=== PATIENT | male | born 1985 | race African-American/Black ===

== ENCOUNTER 2021-10-26 11:54 | Inpatient (IN) | payer MEDICAID ==
[~2021-10-26] VITALS: Ht 190.5 cm; Wt 111.1 kg
[2021-10-26] MEDS ORDERED: ONDANSETRON HCL 4MG/2ML INJ IV ONE (12:30)
[2021-10-26 14:07] LABS: HEMATOCRIT. 24.9 % (42.0-52.0); HEMOGLOBIN. 8.4 g/dL (14.0-18.0); MEAN CORPUSCULAR HEMOGLOBIN 31.3 pg (28.0-32.0); MEAN CORPUSCULAR VOLUME 92.4 fL (80.0-94.0); MEAN PLATELET VOLUME 9.3 fl (7.4-10.4); PLATELET 171 x1000/uL (130-400); RED BLOOD CELL COUNT 2.69 mill/uL (4.7-6.1); RED CELL DISTRIBUTION WIDTH 14.6 % (11.6-14.6)
[2021-10-26 14:10] LABS: CHLORIDE 116 mEq/L (98-107)
[2021-10-26] MEDS ORDERED: SODIUM POLYSTYRENE SULFONATE 15 G/60 ML BOT PO ONE (14:45)
[2021-10-26] MEDS ORDERED: SODIUM BICARBONATE 8.4% 1 MEQ/ML 50ML SYR IV ONE (14:45)
[2021-10-26] MEDS ORDERED: ALBUTEROL (0.083%) 2.5MG/3ML NEB HHN ONE (14:45)
[2021-10-26 14:46] LABS: PLATELET ESTIMATE NORMAL
[2021-10-26] MEDS ORDERED: INSULIN REGULAR (HUMULIN R) 300UNITS/3ML VIAL IV ONE (15:00)
[2021-10-26] MEDS ORDERED: DEXTROSE 50% WATER 50ML SYRINGE IV ONE (15:00)
[2021-10-26] MEDS ORDERED: MANNITOL 12.5G (25%) VIAL 50ML IV NR (15:30)
[2021-10-26 16:24] LABS: HEPATITIS B SURFACE ANTIGEN NEGATIVE
[2021-10-26] MEDS ORDERED: ALTEPLASE 2MG/VIAL ITC SCH (21:30)
[2021-10-26 22:29] VITALS: BP 149/93
[2021-10-26 22:30] VITALS: BP 149/93
[2021-10-27] VITALS: BP 169/95
[2021-10-27] MEDS ORDERED: ONDANSETRON HCL 4MG/2ML INJ IV PRN (00:30)
[2021-10-27] MEDS ORDERED: DIPHENHYDRAMINE 25MG CAPSULE PO PRN (00:30)
[2021-10-27] MEDS ORDERED: HYDROCODONE/ACETAMINOPHEN 5/325MG TABLET PO PRN (00:30)
[2021-10-27] MEDS ORDERED: NALOXONE HCL 0.4MG/ML VIAL IV PRN (00:45)
[2021-10-27] MEDS: CLONIDINE 0.1MG TABLET PO PRN (02:03)
[2021-10-27] MEDS ORDERED: LISI-186 MT (03:54)
[2021-10-27] MEDS ORDERED: SEVE800T8 MT (03:54)
[2021-10-27] MEDS ORDERED: CARV3.1242 MT (03:54)
[2021-10-27] MEDS ORDERED: ASPI-1497 PO (03:54)
[2021-10-27 04:00] VITALS: BP 149/98
[2021-10-27 06:27] LABS: BASOPHILS % 0.8 % (0.0-2.0); EOSINOPHILS % 3.2 % (0.0-5.0); HEMATOCRIT. 24.6 % (42.0-52.0); HEMOGLOBIN. 8.2 g/dL (14.0-18.0); LYMPHOCYTES % 20.4 % (20.0-50.0); MEAN CORPUSCULAR HEMOGLOBIN 30.5 pg (28.0-32.0); MEAN CORPUSCULAR VOLUME 91.2 fL (80.0-94.0); MEAN PLATELET VOLUME 9.3 fl (7.4-10.4); MONOCYTES % 13.5 % (2.0-8.0); NEUTROPHILS % 62.1 % (40.0-76.0); PLATELET 170 x1000/uL (130-400); RED CELL DISTRIBUTION WIDTH 14.5 % (11.6-14.6)
[2021-10-27 08:00] VITALS: BP 159/98
[2021-10-27] MEDS ORDERED: LISINOPRIL 5MG TABLET PO SCH (09:00)
[2021-10-27] MEDS: SEVELAMER CARBONATE 800 MG TABLET PO SCH ×3 (09:52→17:44)
[2021-10-27] MEDS: CARVEDILOL 3.125 MG TABLET PO SCH ×2 (09:53→20:04)
[2021-10-27] MEDS: ASPIRIN 81MG TABLET PO SCH (09:53)
[2021-10-27 12:00] VITALS: BP 142/92
[2021-10-27 16:00] VITALS: BP 145/93
[2021-10-27] MEDS: ACETAMINOPHEN 325MG TABLET PO PRN (17:44)
[2021-10-27 20:00] VITALS: BP 170/95
[2021-10-27] MEDS: ATORVASTATIN CALCIUM 40MG TABLET PO SCH (20:03)
[2021-10-28] VITALS: BP 151/101
[2021-10-28 02:36] LABS: FOLIC ACID (FOLATE) SERUM 4.7 ng/mL (>5.38)
[2021-10-28 04:00] VITALS: BP 154/102
[2021-10-28 06:46] LABS: HEMATOCRIT. 26.8 % (42.0-52.0); HEMOGLOBIN. 9.1 g/dL (14.0-18.0); MEAN CORPUSCULAR HEMOGLOBIN 30.9 pg (28.0-32.0); MEAN CORPUSCULAR VOLUME 90.7 fL (80.0-94.0); PLATELET 188 x1000/uL (130-400); RED BLOOD CELL COUNT 2.95 mill/uL (4.7-6.1); RED CELL DISTRIBUTION WIDTH 14.4 % (11.6-14.6)
[2021-10-28 07:54] VITALS: BP 150/98
[2021-10-28] MEDS: ASPIRIN 81MG TABLET PO SCH (08:51)
[2021-10-28] MEDS: SEVELAMER CARBONATE 800 MG TABLET PO SCH ×3 (08:51→16:33)
[2021-10-28] MEDS: ACETAMINOPHEN 325MG TABLET PO PRN ×2 (08:52→16:39)
[2021-10-28] MEDS: CARVEDILOL 3.125 MG TABLET PO SCH ×2 (08:52→20:41)
[2021-10-28 12:30] VITALS: BP 163/102
[2021-10-28] MEDS: CLONIDINE 0.1MG TABLET PO PRN (14:00)
[2021-10-28 14:26] LABS: PLATELET ESTIMATE NORMAL
[2021-10-28 16:00] VITALS: BP 154/89
[2021-10-28 20:00] VITALS: BP 153/100
[2021-10-28] MEDS: ATORVASTATIN CALCIUM 40MG TABLET PO SCH (20:41)
[2021-10-29] VITALS: BP 152/90
[2021-10-29 04:00] VITALS: BP 152/88
[2021-10-29 08:00] VITALS: BP 148/93
[2021-10-29 08:10] LABS: EOSINOPHILS % 3.4 % (0.0-5.0); HEMATOCRIT. 29.7 % (42.0-52.0); LYMPHOCYTES % 24.9 % (20.0-50.0); MEAN CORPUSCULAR HEMOGLOBIN 31.1 pg (28.0-32.0); MEAN CORPUSCULAR VOLUME 92.2 fL (80.0-94.0); MEAN PLATELET VOLUME 9.2 fl (7.4-10.4); MONOCYTES % 14.4 % (2.0-8.0); NEUTROPHILS % 56.3 % (40.0-76.0); PLATELET 207 x1000/uL (130-400); RED BLOOD CELL COUNT 3.22 mill/uL (4.7-6.1); RED CELL DISTRIBUTION WIDTH 14.4 % (11.6-14.6)
[2021-10-29 09:11] LABS: ABSOLUTE EOSINOPHILS 0.1 x10E3/uL (0.0-0.4); ABSOLUTE LYMPHOCYTES 0.9 x10E3/uL (0.7-3.1); ABSOLUTE MONOCYTES 0.5 x10E3/uL (0.1-0.9); ABSOLUTE NEUTROPHILS 1.7 x10E3/uL (1.4-7.0); BASOPHILS 1 % (Not Estab.); HEMATOCRIT 26.2 % (37.5-51.0); HEMOGLOBIN 8.8 g/dL (13.0-17.7); IMMATURE GRANULOCYTES 1 % (Not Estab.); LYMPHOCYTES 27 % (Not Estab.); MEAN CORPUSCULAR HEMOGLOBIN 30.3 pg (26.6-33.0); MEAN CORPUSCULAR HGB CONC. 33.6 g/dL (31.5-35.7); MEAN CORPUSCULAR VOLUME 90 fL (79-97); MONOCYTES 16 % (Not Estab.); NEUTROPHILS 51 % (Not Estab.); PLATELETS 184 x10E3/uL (150-450); RED CELL DISTRIBUTION WIDTH 14.9 % (11.6-15.4); WBC 3.3 x10E3/uL (3.4-10.8)
[2021-10-29] MEDS: ASPIRIN 81MG TABLET PO SCH (09:49)
[2021-10-29] MEDS: SEVELAMER CARBONATE 800 MG TABLET PO SCH ×3 (09:50→16:33)
[2021-10-29] MEDS: CARVEDILOL 3.125 MG TABLET PO SCH ×2 (09:50→21:46)
[2021-10-29 12:00] VITALS: BP 158/98
[2021-10-29 14:08] LABS: % CD 3 POS. LYMPHOCYTES 87.5 % (57.5-86.2); % CD 4 POS. LYMPHOCYTES 28.4 % (30.8-58.5); % CD 8 POS. LYMPH 55.4 % (12.0-35.5); ABSOLUTE CD 3 788 /uL (622-2402); ABSOLUTE CD 4 HELPER 256 /uL (359-1519); ABSOLUTE CD 8 SUPPRESSOR 499 /uL (109-897); CD4/CD8 RATIO 0.51 (0.92-3.72)
[2021-10-29] MEDS: FOLIC ACID 1MG TABLET PO SCH (14:14)
[2021-10-29 16:00] VITALS: BP 181/107
[2021-10-29] MEDS ORDERED: HEPARIN SODIUM 1,000 UNIT/1ML VIAL IV SCH (16:01)
[2021-10-29 20:00] VITALS: BP 160/78
[2021-10-29] MEDS: AMLODIPINE 10MG TABLET PO SCH (21:46)
[2021-10-29] MEDS: ATORVASTATIN CALCIUM 40MG TABLET PO SCH (21:46)
[2021-10-30] VITALS (7 sets, daily range): BP systolic 148–158; BP diastolic 82–105
[2021-10-30] MEDS: ASPIRIN 81MG TABLET PO SCH (08:27)
[2021-10-30] MEDS: AMLODIPINE 10MG TABLET PO SCH (08:28)
[2021-10-30] MEDS: SEVELAMER CARBONATE 800 MG TABLET PO SCH ×3 (08:28→16:49)
[2021-10-30] MEDS: CARVEDILOL 3.125 MG TABLET PO SCH ×2 (08:28→21:10)
[2021-10-30] MEDS: FOLIC ACID 1MG TABLET PO SCH (08:28)
[2021-10-30 09:48] LABS: BASOPHILS % 1.2 % (0.0-2.0); EOSINOPHILS % 3.5 % (0.0-5.0); HEMATOCRIT. 27.6 % (42.0-52.0); HEMOGLOBIN. 9.5 g/dL (14.0-18.0); LYMPHOCYTES % 20.6 % (20.0-50.0); MEAN CORPUSCULAR HEMOGLOBIN 30.9 pg (28.0-32.0); MEAN PLATELET VOLUME 9.1 fl (7.4-10.4); MONOCYTES % 13.6 % (2.0-8.0); NEUTROPHILS % 61.1 % (40.0-76.0); PLATELET 174 x1000/uL (130-400); RED BLOOD CELL COUNT 3.07 mill/uL (4.7-6.1); RED CELL DISTRIBUTION WIDTH 14.3 % (11.6-14.6)
[2021-10-30] MEDS: ATORVASTATIN CALCIUM 40MG TABLET PO SCH (21:09)
[2021-10-30] MEDS: ACETAMINOPHEN 325MG TABLET PO PRN (21:10)
[2021-10-31] VITALS: BP 150/82
[2021-10-31 04:00] VITALS: BP 152/78
[2021-10-31] MEDS: ACETAMINOPHEN 325MG TABLET PO PRN ×2 (08:56→21:22)
[2021-10-31] MEDS: FOLIC ACID 1MG TABLET PO SCH (08:56)
[2021-10-31] MEDS: SEVELAMER CARBONATE 800 MG TABLET PO SCH ×3 (08:56→17:05)
[2021-10-31] MEDS: ASPIRIN 81MG TABLET PO SCH (08:56)
[2021-10-31] MEDS: CARVEDILOL 3.125 MG TABLET PO SCH ×2 (08:58→21:20)
[2021-10-31] MEDS: AMLODIPINE 10MG TABLET PO SCH (08:59)
[2021-10-31 11:29] LABS: BASOPHILS % 0.9 % (0.0-2.0); EOSINOPHILS % 3.1 % (0.0-5.0); HEMATOCRIT. 28.3 % (42.0-52.0); HEMOGLOBIN. 9.7 g/dL (14.0-18.0); LYMPHOCYTES % 23.9 % (20.0-50.0); MEAN CORPUSCULAR HEMOGLOBIN 30.8 pg (28.0-32.0); MEAN CORPUSCULAR VOLUME 89.7 fL (80.0-94.0); MEAN PLATELET VOLUME 9.1 fl (7.4-10.4); MONOCYTES % 11.8 % (2.0-8.0); NEUTROPHILS % 60.3 % (40.0-76.0); PLATELET 228 x1000/uL (130-400); RED BLOOD CELL COUNT 3.15 mill/uL (4.7-6.1); RED CELL DISTRIBUTION WIDTH 14.1 % (11.6-14.6)
[2021-10-31 12:00] VITALS: BP 129/87
[2021-10-31] MEDS ORDERED: HEPARIN SODIUM 1,000 UNIT/1ML VIAL IV ONE (15:45)
[2021-10-31 16:00] VITALS: BP 146/73
[2021-10-31] MEDS: CLONIDINE 0.1MG TABLET PO PRN (17:05)
[2021-10-31 20:00] VITALS: BP 139/86
[2021-10-31] MEDS: ATORVASTATIN CALCIUM 40MG TABLET PO SCH (21:20)
[2021-11-01] VITALS (7 sets, daily range): BP systolic 145–150; BP diastolic 81–92
[2021-11-01] MEDS: ASPIRIN 81MG TABLET PO SCH (09:32)
[2021-11-01] MEDS: FOLIC ACID 1MG TABLET PO SCH (09:33)
[2021-11-01] MEDS: AMLODIPINE 10MG TABLET PO SCH (09:33)
[2021-11-01] MEDS: SEVELAMER CARBONATE 800 MG TABLET PO SCH ×3 (09:33→18:13)
[2021-11-01] MEDS: CARVEDILOL 3.125 MG TABLET PO SCH ×2 (09:33→20:51)
[2021-11-01] MEDS: ACETAMINOPHEN 325MG TABLET PO PRN (16:14)
[2021-11-01] MEDS: ATORVASTATIN CALCIUM 40MG TABLET PO SCH (20:51)
[2021-11-02] VITALS: BP 163/101
[2021-11-02] MEDS: CLONIDINE 0.1MG TABLET PO PRN (00:46)
[2021-11-02 04:00] VITALS: BP 146/79
[2021-11-02 04:11] LABS: *HIV-1 RNA BY PCR 19720 copies/mL (.)
[2021-11-02 06:23] LABS: HEMATOCRIT. 24.7 % (42.0-52.0); HEMOGLOBIN. 8.4 g/dL (14.0-18.0); MEAN CORPUSCULAR HEMOGLOBIN 30.8 pg (28.0-32.0); MEAN CORPUSCULAR VOLUME 91.1 fL (80.0-94.0); MEAN PLATELET VOLUME 9.4 fl (7.4-10.4); PLATELET 169 x1000/uL (130-400); RED BLOOD CELL COUNT 2.72 mill/uL (4.7-6.1); RED CELL DISTRIBUTION WIDTH 13.9 % (11.6-14.6)
[2021-11-02 08:00] VITALS: BP 165/99
[2021-11-02] MEDS: ASPIRIN 81MG TABLET PO SCH (08:50)
[2021-11-02] MEDS: FOLIC ACID 1MG TABLET PO SCH (08:50)
[2021-11-02] MEDS: SEVELAMER CARBONATE 800 MG TABLET PO SCH ×3 (08:50→17:16)
[2021-11-02] MEDS: AMLODIPINE 10MG TABLET PO SCH (08:52)
[2021-11-02] MEDS: CARVEDILOL 3.125 MG TABLET PO SCH ×3 (09:00→22:06)
[2021-11-02 11:47] VITALS: BP 146/74
[2021-11-02 13:05] LABS: PLATELET ESTIMATE NORMAL
[2021-11-02 16:00] VITALS: BP 155/86
[2021-11-02 20:00] VITALS: BP 154/104
[2021-11-02] MEDS: ATORVASTATIN CALCIUM 40MG TABLET PO SCH (20:22)
[2021-11-03] VITALS: BP 152/81
[2021-11-03 00:11] LABS: CLARITY URINE CLEAR (CLEAR); COLOR URINE YELLOW (YELLOW); KETONES URINE NEGATIVE (NEGATIVE); LEUKOCYTE ESTERASE URINE TRACE (NEGATIVE); NITRITE URINE NEGATIVE (NEGATIVE); OCCULT BLOOD URINE 1+ (NEGATIVE); PH URINE 7.5 (4.5-8.0); PROTEIN URINE 3+ (NEGATIVE); SPECIFIC GRAVITY URINE 1.008 (1.005-1.030); UROBILINOGEN URINE 0.2 E.U./dL (0.2-1.0)
[2021-11-03 04:00] VITALS: BP 122/78
[2021-11-03 06:42] LABS: HEMATOCRIT. 27.3 % (42.0-52.0); HEMOGLOBIN. 9.8 g/dL (14.0-18.0); MEAN CORPUSCULAR HEMOGLOBIN 32.5 pg (28.0-32.0); MEAN CORPUSCULAR VOLUME 90.7 fL (80.0-94.0); MEAN PLATELET VOLUME 9.4 fl (7.4-10.4); PLATELET 180 x1000/uL (130-400); RED BLOOD CELL COUNT 3.01 mill/uL (4.7-6.1); RED CELL DISTRIBUTION WIDTH 14.1 % (11.6-14.6)
[2021-11-03 08:00] VITALS: BP 121/94
[2021-11-03] MEDS: FOLIC ACID 1MG TABLET PO SCH (09:10)
[2021-11-03] MEDS: SEVELAMER CARBONATE 800 MG TABLET PO SCH ×3 (09:10→17:38)
[2021-11-03] MEDS: AMLODIPINE 10MG TABLET PO SCH (09:10)
[2021-11-03] MEDS: ASPIRIN 81MG TABLET PO SCH (09:11)
[2021-11-03] MEDS: CARVEDILOL 3.125 MG TABLET PO SCH ×2 (09:11→21:48)
[2021-11-03 09:38] LABS: PLATELET ESTIMATE NORMAL
[2021-11-03 12:00] VITALS: BP 152/84
[2021-11-03] MEDS ORDERED: HEPARIN 5000 UNITS/ML VIAL IV PRN (13:30)
[2021-11-03 16:00] VITALS: BP 160/91
[2021-11-03 20:00] VITALS: BP 153/105
[2021-11-03] MEDS: ATORVASTATIN CALCIUM 40MG TABLET PO SCH (21:48)
[2021-11-04] VITALS: BP 143/80
[2021-11-04 04:00] VITALS: BP 141/96
[2021-11-04 06:29] LABS: HEMATOCRIT. 27.2 % (42.0-52.0); HEMOGLOBIN. 9.3 g/dL (14.0-18.0); MEAN CORPUSCULAR HEMOGLOBIN 30.9 pg (28.0-32.0); MEAN CORPUSCULAR VOLUME 90.8 fL (80.0-94.0); MEAN PLATELET VOLUME 9.8 fl (7.4-10.4); PLATELET 184 x1000/uL (130-400); RED CELL DISTRIBUTION WIDTH 13.6 % (11.6-14.6)
[2021-11-04 08:00] VITALS: BP 134/93
[2021-11-04] MEDS: ASPIRIN 81MG TABLET PO SCH (09:46)
[2021-11-04] MEDS: CARVEDILOL 3.125 MG TABLET PO SCH (09:46)
[2021-11-04] MEDS: SEVELAMER CARBONATE 800 MG TABLET PO SCH (09:46)
[2021-11-04] MEDS: AMLODIPINE 10MG TABLET PO SCH (09:46)
[2021-11-04] MEDS: FOLIC ACID 1MG TABLET PO SCH (09:46)
[2021-11-04] MEDS ORDERED: ASPI-1497 PO (10:26)
[2021-11-04] MEDS ORDERED: AMLO10TA80 PO (10:26)
[2021-11-04] MEDS ORDERED: LIP40 PO (10:26)
[2021-11-04] MEDS ORDERED: SEVE800T8 MT (10:26)
[2021-11-04] MEDS ORDERED: FOLI-43 PO (10:26)
[2021-11-04] MEDS ORDERED: CARV3.1242 MT (10:26)
[2021-11-04 10:41] VITALS: BP 134/93
[2021-11-04 17:40] LABS: PLATELET ESTIMATE NORMAL
[2021-11-04] MEDS ORDERED: EPOETIN ALFA 4000UNITS/ML VIAL SUBCUT SCH (21:00)
== END 2021-11-04 11:25 | disposition home or self-care (01) | DRG 721 ==
LOC: ER 11:54 → 7WST 14:53 → EDBEDREQTM 14:56 → EDBEDREQ 14:56
PROVIDERS: ADMIT Internal Medicine; ATTEND Internal Medicine
PROC: 5A1D70Z Performance of Urinary Filtration, Intermittent, Less than 6 Hours Per Day (ICD-10-PCS; principal; 2021-10-26)
PROC: 5A1D70Z Performance of Urinary Filtration, Intermittent, Less than 6 Hours Per Day (ICD-10-PCS; 2021-10-27)
PROC: 5A1D70Z Performance of Urinary Filtration, Intermittent, Less than 6 Hours Per Day (ICD-10-PCS; 2021-10-29)
PROC: 5A1D70Z Performance of Urinary Filtration, Intermittent, Less than 6 Hours Per Day (ICD-10-PCS; 2021-10-31)
DX: T85.79XA Infection and inflammatory reaction due to other internal prosthetic devices, implants and grafts, initial encounter (principal); A41.9 Sepsis, unspecified organism; I13.2 Hypertensive heart and chronic kidney disease with heart failure and with stage 5 chronic kidney disease, or end stage renal disease; E87.2 Acidosis; N18.6 End stage renal disease; I50.9 Heart failure, unspecified; I45.10 Unspecified right bundle-branch block; D64.9 Anemia, unspecified; G89.29 Other chronic pain; D72.821 Monocytosis (symptomatic); R74.01 Elevation of levels of liver transaminase levels; R79.89 Other specified abnormal findings of blood chemistry; E87.5 Hyperkalemia; Z20.828 Contact with and (suspected) exposure to other viral communicable diseases; Z99.2 Dependence on renal dialysis; Z91.15 Patient's noncompliance with renal dialysis; Y84.8 Other medical procedures as the cause of abnormal reaction of the patient, or of later complication, without mention of misadventure at the time of the procedure; Y92.89 Other specified places as the place of occurrence of the external cause; I16.0 Hypertensive urgency
CPT/HCPCS: 36415; 71045; 80048; 80053; 80061; 81003; 82607; 82728; 82746; 82962; 83036; 83540; 83550; 83880; 84145; 84443; 84484; 85025; 86359; 86360; 86705; 86706; 86709; 86803; 87340; 87426; 87536; 87804; 93005; 94644; 99285; J1644; J1815; J2150; J2405; J2997; J3490

== ENCOUNTER 2022-01-06 23:00 | Inpatient (IN) | payer MEDICAID ==
[~2022-01-06] VITALS: Ht 190.5 cm; Wt 94.3 kg
[~2022-01-06 23:00] MED LIST: AMLO10TA80 PO; ASPI-1497 PO; CARV3.1242 MT; FOLI-43 PO; LIP40 PO; SEVE800T8 MT
[2022-01-07] VITALS (10 sets, daily range): BP systolic 156–187; BP diastolic 86–102
[2022-01-07] MEDS ORDERED: AMOXICILLIN 500 MG CAPSULE PO ONE (01:45)
[2022-01-07] MEDS ORDERED: AZITHROMYCIN 500 MG TABLET PO ONE (02:00)
[2022-01-07 02:17] LABS: BASOPHILS % 1.1 % (0.0-2.0); EOSINOPHILS % 3.8 % (0.0-5.0); HEMATOCRIT. 30.5 % (42.0-52.0); HEMOGLOBIN. 10.1 g/dL (14.0-18.0); LYMPHOCYTES % 16.7 % (20.0-50.0); MEAN CORPUSCULAR HEMOGLOBIN 30.9 pg (28.0-32.0); MEAN CORPUSCULAR VOLUME 93.9 fL (80.0-94.0); MEAN PLATELET VOLUME 9.5 fl (7.4-10.4); MONOCYTES % 8.2 % (2.0-8.0); NEUTROPHILS % 70.2 % (40.0-76.0); PLATELET 205 x1000/uL (130-400); RED BLOOD CELL COUNT 3.25 mill/uL (4.7-6.1); RED CELL DISTRIBUTION WIDTH 14.3 % (11.6-14.6)
[2022-01-07] MEDS ORDERED: AZIT250T12 MT (03:03)
[2022-01-07 03:21] LABS: CHLORIDE 111 mEq/L (98-107)
[2022-01-07] MEDS ORDERED: ASPIRIN 81MG TABLET PO NR (03:45)
[2022-01-07] MEDS ORDERED: ONDANSETRON HCL 4MG/2ML INJ IV PRN (09:30)
[2022-01-07] MEDS ORDERED: CEFTRIAXONE 1 G PREMIX 50 ML IV SCH (09:30)
[2022-01-07] MEDS ORDERED: ACETAMINOPHEN 325MG TABLET PO PRN (09:30)
[2022-01-07] MEDS ORDERED: AMLODIPINE 10MG TABLET PO SCH (09:30)
[2022-01-07] MEDS ORDERED: LEVOFLOXACIN 500MG PREMIX 100 ML IV NR (11:00)
[2022-01-07] MEDS ORDERED: LEVO250T74 MT (13:15)
[2022-01-07] MEDS ORDERED: ALBU18HF2 IH (13:15)
[2022-01-07] MEDS ORDERED: HYDRALAZINE HCL 100MG TABLET PO NR (14:00)
[2022-01-07 15:33] LABS: CLARITY URINE CLEAR (CLEAR); COLOR URINE YELLOW (YELLOW); KETONES URINE NEGATIVE (NEGATIVE); LEUKOCYTE ESTERASE URINE NEGATIVE (NEGATIVE); NITRITE URINE NEGATIVE (NEGATIVE); OCCULT BLOOD URINE 2+ (NEGATIVE); PROTEIN URINE 4+ (NEGATIVE); SPECIFIC GRAVITY URINE 1.016 (1.005-1.030); UROBILINOGEN URINE 0.2 E.U./dL (0.2-1.0)
[2022-01-07] MEDS ORDERED: HYDRALAZINE HCL 100MG TABLET PO SCH (22:00)
[2022-01-08] MEDS ORDERED: AZITHROMYCIN 250 MG TABLET PO SCH (09:00)
[2022-01-09] MEDS ORDERED: LEVOFLOXACIN 250MG PREMIX 50 ML IV SCH (11:00)
== END 2022-01-07 16:30 | disposition home or self-care (01) | DRG 139 ==
LOC: ER 23:00 → 8WST 01-07 05:21 → ENRESERV 01-07 07:42
PROVIDERS: ADMIT Internal Medicine; ATTEND Internal Medicine
PROC: 5A1D70Z Performance of Urinary Filtration, Intermittent, Less than 6 Hours Per Day (ICD-10-PCS; principal; 2022-01-07)
DX: J18.9 Pneumonia, unspecified organism (principal); E43 Unspecified severe protein-calorie malnutrition; E87.20 Acidosis, unspecified; I12.0 Hypertensive chronic kidney disease with stage 5 chronic kidney disease or end stage renal disease; E87.5 Hyperkalemia; N18.6 End stage renal disease; Z20.822 Contact with and (suspected) exposure to COVID-19; Z88.8 Allergy status to other drugs, medicaments and biological substances; Z99.2 Dependence on renal dialysis; Z91.15 Patient's noncompliance with renal dialysis; I16.0 Hypertensive urgency; D72.819 Decreased white blood cell count, unspecified; D64.9 Anemia, unspecified
CPT/HCPCS: 36415; 71045; 80053; 81003; 84484; 85025; 87426; 90935; 93005; 99285; J1956

== ENCOUNTER 2022-01-26 05:57 | Inpatient (IN) | payer MEDICAID ==
[~2022-01-26] VITALS: Ht 190.5 cm; Wt 105.7 kg
[~2022-01-26 05:57] MED LIST changes: +ALBU18HF2 IH; +LEVO250T74 MT
[2022-01-26] MEDS ORDERED: NITROGLYCERIN OINT 1GM/INCH UDPKT TD ONE (07:00)
[2022-01-26 08:58] LABS: HEMATOCRIT. 30.5 % (42.0-52.0); HEMOGLOBIN. 10.1 g/dL (14.0-18.0); MEAN CORPUSCULAR HEMOGLOBIN 31.8 pg (28.0-32.0); MEAN CORPUSCULAR VOLUME 96.1 fL (80.0-94.0); MEAN PLATELET VOLUME 8.9 fl (7.4-10.4); PLATELET 146 x1000/uL (130-400); RED BLOOD CELL COUNT 3.17 mill/uL (4.7-6.1); RED CELL DISTRIBUTION WIDTH 16.3 % (11.6-14.6)
[2022-01-26 09:08] LABS: CHLORIDE 102 mEq/L (98-107)
[2022-01-26] MEDS ORDERED: NITROGLYCERIN OINT 1GM/INCH UDPKT TD NR (09:45)
[2022-01-26 10:06] LABS: PLATELET ESTIMATE NORMAL
[2022-01-26] MEDS ORDERED: BENZONATATE 100MG CAPSULE PO PRN (12:00)
[2022-01-26] MEDS ORDERED: ACETAMINOPHEN 325MG TABLET PO PRN (12:00)
[2022-01-26] MEDS ORDERED: IPRATROPIUM/ALBUTEROL 0.5-3(2.5)MG/3ML NEB HHN PRN (12:00)
[2022-01-26] MEDS ORDERED: NIFEDIPINE XL 60MG TAB PO SCH (12:00)
[2022-01-26] MEDS ORDERED: ONDANSETRON HCL 4MG/2ML INJ IV PRN (12:00)
[2022-01-26 14:11] LABS: HEPATITIS B SURFACE ANTIGEN NEGATIVE
[2022-01-26 16:00] VITALS: BP 143/94
[2022-01-26 16:40] VITALS: BP 165/103
[2022-01-26 17:10] VITALS: BP 186/101
[2022-01-26 17:40] VITALS: BP 168/69
[2022-01-26 18:30] VITALS: BP 174/101
[2022-01-26] MEDS ORDERED: CARVEDILOL 3.125 MG TABLET PO SCH (20:00)
[2022-01-27 08:00] VITALS: BP 146/83
== END 2022-01-27 11:38 | disposition left against medical advice (07) | DRG 199 ==
LOC: ER 06:10 → EDBEDREQTM 09:08 → EDBEDREQ 09:08 → EDBEDREQTM 09:29 → EDBEDREQ 09:29 → 8WST 10:25 → EDBEDREQ 10:28 → EDBEDREQTM 10:28 → ENRESERV 14:32
PROVIDERS: ADMIT Internal Medicine; ATTEND Internal Medicine
PROC: 5A1D70Z Performance of Urinary Filtration, Intermittent, Less than 6 Hours Per Day (ICD-10-PCS; principal; 2022-01-26)
DX: I16.0 Hypertensive urgency (principal); E43 Unspecified severe protein-calorie malnutrition; J81.1 Chronic pulmonary edema; D63.1 Anemia in chronic kidney disease; N18.6 End stage renal disease; E87.1 Hypo-osmolality and hyponatremia; M94.0 Chondrocostal junction syndrome [Tietze]; I12.0 Hypertensive chronic kidney disease with stage 5 chronic kidney disease or end stage renal disease; Z20.822 Contact with and (suspected) exposure to COVID-19; D72.819 Decreased white blood cell count, unspecified; Z53.29 Procedure and treatment not carried out because of patient's decision for other reasons; Z88.0 Allergy status to penicillin; Z79.899 Other long term (current) drug therapy; Z99.2 Dependence on renal dialysis; Z68.29 Body mass index [BMI] 29.0-29.9, adult
CPT/HCPCS: 36415; 71045; 80053; 84145; 84484; 85025; 86705; 86709; 86803; 87340; 87426; 87804; 99291; C9803

== ENCOUNTER 2022-03-16 00:48 | Inpatient (IN) | payer MEDICAID ==
[2022-03-16] VITALS (9 sets, daily range): BP systolic 124–163; BP diastolic 85–106
[~2022-03-16] VITALS: Ht 190.5 cm; Wt 99.8 kg
[2022-03-16 02:43] LABS: BASOPHILS % 0.7 % (0.0-2.0); EOSINOPHILS % 1.6 % (0.0-5.0); HEMATOCRIT. 34.5 % (42.0-52.0); HEMOGLOBIN. 11.3 g/dL (14.0-18.0); MEAN CORPUSCULAR HEMOGLOBIN 31.7 pg (28.0-32.0); MEAN CORPUSCULAR VOLUME 96.7 fL (80.0-94.0); MEAN PLATELET VOLUME 8.4 fl (7.4-10.4); MONOCYTES % 11.1 % (2.0-8.0); NEUTROPHILS % 72.6 % (40.0-76.0); PLATELET 215 x1000/uL (130-400); RED BLOOD CELL COUNT 3.57 mill/uL (4.7-6.1); RED CELL DISTRIBUTION WIDTH 16.4 % (11.6-14.6)
[2022-03-16 02:55] LABS: CHLORIDE 98 mEq/L (98-107)
[2022-03-16 03:02] LABS: INR 1.1; PROTHROMBIN TIME 11.5 sec (9.6-11.0)
[2022-03-16 03:06] LABS: ETHANOL BLOOD < 10 mg/dL
[2022-03-16] MEDS ORDERED: ASPIRIN 325MG EC TABLET PO NR (04:45)
[2022-03-16] MEDS ORDERED: IPRATROPIUM/ALBUTEROL 0.5-3(2.5)MG/3ML NEB NEB PRN (07:00)
[2022-03-16] MEDS ORDERED: GUAIFENESIN 200MG/10ML SUGAR FREE UDC PO PRN (07:00)
[2022-03-16] MEDS ORDERED: ONDANSETRON HCL 4MG/2ML INJ IV PRN (07:00)
[2022-03-16] MEDS ORDERED: DOCUSATE SODIUM 100MG CAPSULE PO PRN (07:00)
[2022-03-16] MEDS ORDERED: NA PHOS,M-B/NA PHOS,DI-BA ENEMA 118ML PR PRN (07:00)
[2022-03-16] MEDS ORDERED: MAGNESIUM/ALUMINUM HYDROXIDE/SIMETHICONE 30ML UDC PO PRN (07:00)
[2022-03-16] MEDS ORDERED: ACETAMINOPHEN 325MG TABLET PO PRN (07:00)
[2022-03-16] MEDS ORDERED: NITROGLYCERIN 0.4MG TABLET SL SL PRN (07:00)
[2022-03-16] MEDS ORDERED: ENOXAPARIN 40MG/0.4ML SYR SUBCUT SCH (07:00)
[2022-03-16] MEDS: CARVEDILOL 3.125 MG TABLET PO SCH ×2 (08:00→17:07)
[2022-03-16] MEDS: AMLODIPINE 10MG TABLET PO SCH (08:00)
[2022-03-16] MEDS ORDERED: FAMOTIDINE 20MG TABLET PO SCH (09:00)
[2022-03-16] MEDS: FAMOTIDINE 20MG TABLET PO SCH (09:36)
[2022-03-16] MEDS: SEVELAMER CARBONATE 800 MG TABLET PO SCH ×3 (09:36→21:04)
[2022-03-16] MEDS: ENOXAPARIN 30MG/0.3ML SYR SUBCUT SCH (09:36)
[2022-03-16 10:20] LABS: T4 FREE 0.98 ng/dL (0.76-1.46)
[2022-03-16 13:34] LABS: HEPATITIS B SURFACE ANTIGEN NEGATIVE
[2022-03-16 15:09] LABS: VITAMIN B12 SERUM 285 pg/mL (211-911)
[2022-03-16 15:15] LABS: CLARITY URINE CLEAR (CLEAR); COLOR URINE YELLOW (YELLOW); KETONES URINE NEGATIVE (NEGATIVE); LEUKOCYTE ESTERASE URINE NEGATIVE (NEGATIVE); NITRITE URINE NEGATIVE (NEGATIVE); OCCULT BLOOD URINE 2+ (NEGATIVE); PROTEIN URINE 4+ (NEGATIVE); SPECIFIC GRAVITY URINE 1.017 (1.005-1.030); UROBILINOGEN URINE 0.2 E.U./dL (0.2-1.0)
[2022-03-16 15:45] LABS: *AMPHETAMINES SCREEN URINE NEGATIVE (NEGATIVE); *BARBITURATES SCREEN URINE NEGATIVE (NEGATIVE); *BENZODIAZEPINES SCREEN URINE NEGATIVE (NEGATIVE); *COCAINE SCREEN URINE NEGATIVE (NEGATIVE); CANNABINOID URINE SCREEN PRESUMTIVE POSITIVE (NEGATIVE); METHADONE URINE SCREEN NEGATIVE (NEGATIVE); OPIATES URINE SCREEN NEGATIVE (NEGATIVE); PHENCYCLIDINE URINE SCREEN NEGATIVE (NEGATIVE)
[2022-03-16] MEDS ORDERED: ZOLPIDEM TARTRATE 5MG TABLET PO PRN (21:00)
[2022-03-16] MEDS: ATORVASTATIN CALCIUM 20MG TABLET PO SCH (21:04)
[2022-03-16] MEDS ORDERED: ALBUTEROL (0.083%) 2.5MG/3ML NEB HHN PRN (21:45)
[2022-03-16] MEDS ORDERED: IPRATROPIUM BROMIDE (0.02%) 0.5MG/2.5ML NEB HHN PRN (21:45)
[2022-03-17] VITALS: BP 126/68
[2022-03-17 04:00] VITALS: BP 149/99
[2022-03-17] MEDS: CARVEDILOL 3.125 MG TABLET PO SCH ×2 (06:05→17:53)
[2022-03-17 07:22] LABS: HEMATOCRIT. 33.8 % (42.0-52.0); HEMOGLOBIN. 11.4 g/dL (14.0-18.0); MEAN CORPUSCULAR HEMOGLOBIN 32.3 pg (28.0-32.0); MEAN CORPUSCULAR VOLUME 95.5 fL (80.0-94.0); MEAN PLATELET VOLUME 8.8 fl (7.4-10.4); PLATELET 209 x1000/uL (130-400); RED BLOOD CELL COUNT 3.54 mill/uL (4.7-6.1); RED CELL DISTRIBUTION WIDTH 15.6 % (11.6-14.6)
[2022-03-17] MEDS: ASPIRIN 81MG EC TABLET PO SCH (08:49)
[2022-03-17] MEDS: AMLODIPINE 10MG TABLET PO SCH (08:49)
[2022-03-17] MEDS: SEVELAMER CARBONATE 800 MG TABLET PO SCH ×3 (08:49→17:51)
[2022-03-17] MEDS: FAMOTIDINE 20MG TABLET PO SCH (08:49)
[2022-03-17] MEDS: ENOXAPARIN 30MG/0.3ML SYR SUBCUT SCH (08:50)
[2022-03-17] MEDS ORDERED: ASPIRIN 325MG EC TABLET PO SCH (09:00)
[2022-03-17 09:09] LABS: CHLORIDE 95 mEq/L (98-107)
[2022-03-17 09:51] LABS: PHOSPHORUS 7.2 mg/dL (2.5-4.9)
[2022-03-17 10:41] LABS: CREATINE KINASE MB FRACTION 3.8 ng/mL (0.5-3.6)
[2022-03-17 12:00] VITALS: BP 144/94
[2022-03-17 16:04] VITALS: BP 154/102
[2022-03-17] MEDS: CLONIDINE 0.1MG TABLET PO PRN (16:33)
[2022-03-17] MEDS: ACETAMINOPHEN 325MG TABLET PO PRN (16:34)
[2022-03-17 16:59] LABS: PLATELET ESTIMATE NORMAL
[2022-03-17] MEDS: ATORVASTATIN CALCIUM 20MG TABLET PO SCH (20:04)
[2022-03-17] MEDS ORDERED: POTASSIUM CHLORIDE INJ 40 MEQ in DEXT 5% WATER 250 ML IV ONE (21:00)
[2022-03-18] VITALS (15 sets, daily range): BP systolic 131–159; BP diastolic 75–109
[2022-03-18] MEDS: CARVEDILOL 3.125 MG TABLET PO SCH ×2 (05:28→17:12)
[2022-03-18] MEDS: ACETAMINOPHEN 325MG TABLET PO PRN (06:40)
[2022-03-18 07:20] LABS: HEMOGLOBIN. 11.9 g/dL (14.0-18.0); MEAN CORPUSCULAR HEMOGLOBIN 31.1 pg (28.0-32.0); MEAN CORPUSCULAR VOLUME 94.5 fL (80.0-94.0); MEAN PLATELET VOLUME 8.6 fl (7.4-10.4); PLATELET 227 x1000/uL (130-400); RED BLOOD CELL COUNT 3.81 mill/uL (4.7-6.1)
[2022-03-18] MEDS: AMLODIPINE 10MG TABLET PO SCH (08:39)
[2022-03-18] MEDS: SEVELAMER CARBONATE 800 MG TABLET PO SCH ×3 (08:39→17:12)
[2022-03-18] MEDS: FAMOTIDINE 20MG TABLET PO SCH (08:39)
[2022-03-18] MEDS: ASPIRIN 81MG EC TABLET PO SCH (08:39)
[2022-03-18] MEDS: ENOXAPARIN 30MG/0.3ML SYR SUBCUT SCH (08:40)
[2022-03-18] MEDS: CLONIDINE 0.1MG TABLET PO PRN (08:40)
[2022-03-18 09:07] LABS: ABSOLUTE EOSINOPHILS 0.1 x10E3/uL (0.0-0.4); ABSOLUTE LYMPHOCYTES 0.5 x10E3/uL (0.7-3.1); ABSOLUTE MONOCYTES 0.5 x10E3/uL (0.1-0.9); ABSOLUTE NEUTROPHILS 1.6 x10E3/uL (1.4-7.0); BASOPHILS 1 % (Not Estab.); HEMATOCRIT 36.5 % (37.5-51.0); HEMOGLOBIN 11.6 g/dL (13.0-17.7); IMMATURE GRANULOCYTES 30 % (Not Estab.); IMMATURE GRANULOCYTES ABSOLUTE 1.1 x10E3/uL (0.0-0.1); LYMPHOCYTES 14 % (Not Estab.); MEAN CORPUSCULAR HEMOGLOBIN 31.1 pg (26.6-33.0); MEAN CORPUSCULAR HGB CONC. 31.8 g/dL (31.5-35.7); MEAN CORPUSCULAR VOLUME 98 fL (79-97); MONOCYTES 12 % (Not Estab.); NEUTROPHILS 40 % (Not Estab.); PLATELETS 218 x10E3/uL (150-450); RBC 3.73 x10E6/uL (4.14-5.80); RED CELL DISTRIBUTION WIDTH 15.1 % (11.6-15.4); WBC 3.9 x10E3/uL (3.4-10.8)
[2022-03-18 10:07] LABS: % CD 3 POS. LYMPHOCYTES 76.6 % (57.5-86.2); % CD 4 POS. LYMPHOCYTES 23.5 % (30.8-58.5); % CD 8 POS. LYMPH 51.8 % (12.0-35.5); ABSOLUTE CD 3 383 /uL (622-2402); ABSOLUTE CD 4 HELPER 118 /uL (359-1519); ABSOLUTE CD 8 SUPPRESSOR 259 /uL (109-897); CD4/CD8 RATIO 0.45 (0.92-3.72)
[2022-03-18 16:41] LABS: PLATELET ESTIMATE NORMAL
[2022-03-18] MEDS: ATORVASTATIN CALCIUM 20MG TABLET PO SCH (20:12)
[2022-03-18] MEDS ORDERED: SULFAMETHOXAZOLE/TRIMETHOPRIM 400/80MG TAB PO SCH (21:00)
[2022-03-19] VITALS: BP 126/75
[2022-03-19 04:00] VITALS: BP 132/86
[2022-03-19] MEDS: CARVEDILOL 3.125 MG TABLET PO SCH (05:51)
[2022-03-19] MEDS: SEVELAMER CARBONATE 800 MG TABLET PO SCH ×2 (06:47→08:17)
[2022-03-19 08:05] VITALS: BP 151/105
[2022-03-19] MEDS: FAMOTIDINE 20MG TABLET PO SCH (08:18)
[2022-03-19] MEDS: CLONIDINE 0.1MG TABLET PO PRN (08:18)
[2022-03-19] MEDS: ASPIRIN 81MG EC TABLET PO SCH (08:18)
[2022-03-19] MEDS: ENOXAPARIN 30MG/0.3ML SYR SUBCUT SCH (08:19)
[2022-03-19] MEDS ORDERED: AMLODIPINE 5MG TABLET PO SCH (09:00)
[2022-03-19 09:23] VITALS: BP 135/84
[2022-03-19 10:01] VITALS: BP 138/84
== END 2022-03-19 11:10 | disposition home or self-care (01) | DRG 190 ==
LOC: ER 00:48 → 8WST 05:13 → ENRESERV 13:54
PROVIDERS: ADMIT Internal Medicine; ATTEND Internal Medicine
PROC: 5A1D70Z Performance of Urinary Filtration, Intermittent, Less than 6 Hours Per Day (ICD-10-PCS; principal; 2022-03-16)
PROC: 5A1D70Z Performance of Urinary Filtration, Intermittent, Less than 6 Hours Per Day (ICD-10-PCS; 2022-03-18)
DX: I21.4 Non-ST elevation (NSTEMI) myocardial infarction (principal); I50.21 Acute systolic (congestive) heart failure; N18.6 End stage renal disease; E87.1 Hypo-osmolality and hyponatremia; E46 Unspecified protein-calorie malnutrition; D63.1 Anemia in chronic kidney disease; I13.2 Hypertensive heart and chronic kidney disease with heart failure and with stage 5 chronic kidney disease, or end stage renal disease; Z20.822 Contact with and (suspected) exposure to COVID-19; I16.0 Hypertensive urgency; D53.9 Nutritional anemia, unspecified; R10.11 Right upper quadrant pain; R74.01 Elevation of levels of liver transaminase levels; D72.819 Decreased white blood cell count, unspecified; F17.210 Nicotine dependence, cigarettes, uncomplicated; Z68.27 Body mass index [BMI] 27.0-27.9, adult; Z99.2 Dependence on renal dialysis; Z91.15 Patient's noncompliance with renal dialysis; Z59.00 Homelessness unspecified; Z79.899 Other long term (current) drug therapy; Z88.0 Allergy status to penicillin; Z79.82 Long term (current) use of aspirin
CPT/HCPCS: 36415; 71045; 74176; 80048; 80053; 80061; 80305; 80320; 81003; 82550; 82553; 82607; 82746; 83036; 83540; 83550; 83605; 83735; 83880; 84100; 84145; 84439; 84443; 84484; 85025; 86359; 86360; 86705; 86709; 86803; 87340; 87426; 87536; 90935; 93005; 93306; 93970; 99285; J1650; J2405; G0480